=== PATIENT | male | born 1975 | race Caucasian/White ===

== ENCOUNTER 2016-10-09 22:05 | Emergency (ER) | payer BC ==
[~2016-10-09 22:05] MED LIST: AFRIN3 ML; AUGMENTIN875 MG; IBUPROFEN600 MG; NO MEDICATIONS; VIBRAMYCIN100 M1 PO
== END 2016-10-09 23:01 | disposition home or self-care (01) ==
LOC: SED 22:05
DX: H00.14 Chalazion left upper eyelid (principal); F17.210 Nicotine dependence, cigarettes, uncomplicated
CPT/HCPCS: 99283

== ENCOUNTER → 2016-10-28 | Outpatient (CLI) | payer BC ==
--- NOTE | ~2016-10-28 | CR63 ---
[facility] A Service of [facility] [place] RADIOLOGY TEXT RESULTS PATIENT: BO DE LA PAZ O LOCATION: SRA : 77 UNIT #: [id number] AGE: [address]: DORY SANTANA MD SEX: M ORDER DR: [id number] [address] [address] [id number] O MR#: [id number] Acc #: [id number] NAME: BO DE LA PAZ : 1975 SEX: M STUDY DATE/TIME: 10/28/2016 15:20 UNIT: SRAD ROOM: STUDY DESCRIPTION: CR Chest 2 View Attending Physician: Dory Santana Referring Physician: Dory Santana Ordering Physician: Franky Santana M.D. Primary Care Physician: Dory Santana MEDICAL IMAGING REPORT This report is preliminary unless electronic signature is present. EXAM AP and lateral chest with nipple marker films of 10/28/2016 COMPARISON Comparison to a chest radiograph of 10/18/16 FINDINGS PA and lateral views of the chest are obtained with nipple markers. FINDINGS The heart size is normal. There are 2 calcified nodules in the left lung. No noncalcified pulmonary nodules are seen. The nipple markers do not correspond to the nodular densities seen on the patient's previous radiograph CONCLUSION Chest radiograph shows 2 nodules in the left base which I think are both calcified. The chest is otherwise clear. Suggest a followup chest radiograph in about 3 months to confirm stability. Dictated by... Kumar Nieves M.D. THIS IS AN ELECTRONICALLY VERIFIED REPORT Kumar Nieves M.D. at 10/31/2016 7:14 AM GREGORY/carlito TD: 10/29/2016 11:23 JOB #: [id number] MEDICAL IMAGING REPORT [facility] A Service of [facility] [place] RADIOLOGY TEXT RESULTS PATIENT: BO DE LA PAZ LOCATION: [facility] : [birth year] UNIT #: [id number] AGE: [address]: DORY SANTANA MD SEX: M ORDER DR: Page 1 of 1
== END | disposition home or self-care (01) ==
LOC: SRAD 15:13
DX: R93.8 Abnormal findings on diagnostic imaging of other specified body structures (principal); R91.8 Other nonspecific abnormal finding of lung field
CPT/HCPCS: 71020